=== PATIENT | female | born 1970 | race African-American/Black ===

== ENCOUNTER 2025-08-02 10:58 | Outpatient (AMB) | payer BC, SELFPAY ==
[2025-08-02 11:08] VITALS: BMI 37.9
--- NOTE | 2025-08-02 11:08 | A.PHYSOV_ITS ---
Vital Signs 08/02/25 11:08 Height 5 ft 9 in Weight 257 lb BMI 37.9 Intake Visit Reasons: back & leg pain Intake Note: Patient is a 54 year old female here today for low back and leg pain. Gyn Physician Required: No Allergies naproxen (From Naprosyn) Allergy (Unknown, Verified 08/02/25 11:10) Unknown HPI Comments Details: History of Present Illness The patient is a 54-year-old female presenting for evaluation of lower back pain. She has been experiencing lower back pain which sometimes radiates to her buttock and down the back of her leg to the front. Due to the pain, she felt her hips were out of alignment, causing her to walk with a lopsided gait, and this has contributed to weight gain. For the past two months, she has been receiving chiropractic treatments once a week, which has provided some improvement in her symptoms and ability to walk. She also uses a TENS unit and heat at home. She reports feeling significantly better recently, noting last week was the first time in three months she could walk at work without pain. She is feeling better since the initial exacerbation. She has a pain level today of 2/10. She was given exercises by her chiropractor but notes they seem to make her pain worse. The patient does not like to take pain medication, stating Tylenol does not seem to help, and she cannot take ibuprofen. Her history is notable for a lumbar MRI in 2022. Pain Description - Location: Lower back, localized to one area. - Radiation: Sometimes radiates into the buttock and down the back of the leg, extending to the front. - Associated Symptoms: Reports a sensation of her hips being out of alignment, which she feels affects her gait. - Severity: The pain was worse previously but has improved. - Exacerbating Factors: Pain is worsened by certain exercises, and she cannot sleep on her left side due to pain. - Relieving Factors: Chiropractic adjustments, using a TENS unit, and applying heat have provided some relief. - Interference with Function: Previously had difficulty walking, but this has improved; sleep is affected as she avoids sleeping on one side. Procedure: Left L3-4, L4-5, L5-S1 facet injection 09/28/2024 100% reduction of her back pain Results - Imaging: - Lumbar Spine MRI (2022): Revealed a disc herniation at L5-S1 that is encroaching on the left S1 nerve root. [facility] Surgical History H/O foot surgery H/O: hysterectomy Social History (Updated 08/02/25 @ 11:09 by Keri Cai MA) Alcohol intake: current Alcohol intake frequency: does not drink Patient Tobacco Use Status: Former Tobacco user Use of substances other than those prescribed or required for medical reasons: No Review of Systems Narrative Review of Systems - Musculoskeletal: Reports lower back pain that radiates to the buttock and leg. - Reports feeling like her hips are out of alignment, causing a lopsided gait. - Neurological: Denies numbness or tingling in her leg. - Constitutional: Reports weight gain. Physical Exam Exam Exam: Physical Exam - Back: No pain on palpation of the central lower back. - Pain is elicited with palpation over the left sacroiliac joint area. - No pain on palpation of the right sacroiliac joint area. - Lumbar extension elicits pain in the lower back. - Lumbar flexion produces slight localized pain. - Tenderness present over the left hip on palpation. - Neurological: Sensation is intact and equal in both legs. - No numbness is present. - Negative straight leg raise bilaterally. - Pain is elicited with resisted hip flexion. - Musculoskeletal: Full strength with foot dorsiflexion and plantarflexion. Vital Signs: BMI result Body Mass Index 37.9 Assessment & Plan Assessment & Plan (1) Lumbar radiculopathy: Code(s): M54.16 - Radiculopathy, lumbar region Category: Medical (2) Lumbar spondylosis: Code(s): M47.816 - Spondylosis without myelopathy or radiculopathy, lumbar region Category: Medical Plan Pain Management - Affect: Reports weight gain due to decreased activity from pain. - Analgesia: The patient does not take any medication for pain. - She has tried Tylenol but feels it is ineffective. - She uses a TENS unit and heat for pain control. - She is also receiving rn intensive care unit. - Adverse Effects: The patient cannot take ibuprofen. - Activities of Daily Living: The patient reports her walking has improved and she was recently able to walk at work without pain for the first time in three months. - She avoids sleeping on her left side because it is painful. - Aberrant Drug Related Behaviors: None noted; the patient reports an aversion to taking medications. Plan Patient was informed and verbally consented to the use of an ambient scribe for clinic note documentation during this visit. 1. Left Lumbar Radiculopathy The patient's symptoms are consistent with left S1 radiculopathy secondary to the L5-S1 disc herniation seen on her 2022 MRI. Treatment options were discussed, including conservative management, medication, and an epidural steroid injection targeting the left S1 nerve root. Patient will contact our office if she would like to pursue left S1 TFESI. Given that her symptoms are improving, the patient has elected to continue with her current conservative management and monitor her progress. She will continue with chiropractic visits, home use of a TENS unit, and heat. The patient was provided with a handout of gentle exercises for core and back strengthening and was advised to avoid any that exacerbate her pain. The patient was advised to call the office if her pain worsens, and it was explained that medications or an injection could be ordered via an addendum to today's note without needing another in-person visit. The process for ordering an injection, which requires insurance approval, was briefly explained. Discussion Notes I discussed with the patient that her symptoms are consistent with the findings on her MRI from 2022, which showed an L5-S1 disc herniation impinging on the left S1 nerve root. I explained that this can cause the type of radiating leg pain she has experienced. We reviewed several management options. These included continuing to monitor her symptoms, trying a prescription medication for pain, or proceeding with an epidural steroid injection to target the inflamed nerve. Given that she is starting to feel better with rn intensive care unit, I agreed that it is reasonable to wait and see if her symptoms continue to improve. I assured her that if her pain worsens, she can contact the office, and I can prescribe a medication or order an injection without requiring another scheduled appointment. I will document our plan and potential next steps today so we are prepared to act if needed. I provided her with a handout of exercises and advise d her to perform the gentle ones, avoiding any that cause increased pain. Patient Instructions - Continue with your current treatments that are helping, including chiropractic visits, using your TENS unit, and applying heat. - It is okay to wait and see if your pain continues to get better on its own. - You were given a sheet with exercises. - You can try the gentle exercises, but if any specific exercise makes your pain worse, you should stop doing that one. - If your pain gets worse or does not continue to improve, please call our office. - We can discuss other options like medication or an injection over the phone without you needing to come back in for an appointment. Coding Level of Care Code Est Pt Level 3 (72963) Diagnoses Lumbar radiculopathy M54.16 Lumbar spondylosis M47.816
--- OUTSIDE RECORDS SUMMARY | 2025-08-02 12:52 | XMS_ITS | Patient Health Record ---
Author Organization [facility] Address [address] [place] [address] Care Team Providers Care Senior Benefits Analyst Name Role Phone Leanne Sanabria MD Primary Care Provider Trevin Escamilla Unavailable [phone] Allergies Allergen (clinical drug ingredient) Drug/Non Drug Allergy documented on EMR Reaction Allergy Type Onset Date Status naproxen Naprosyn cough up blood Drug Allergy Ac tive Reason For Referral No Information Medications Medication SIG (Take, Route, Frequency, Duration) Notes Start Date End Date Status Multivitamins as directed Orally Active AFO-Hinged as directed Wear Adrianna ly; Duration: as needed 08/04/2017 Active Social History Tobacco Use: Social History Observation Description Date Details (start date - stop date) Former Smoker NA - NA Tobacco Use/Smoking Question Answer Notes Are you a: former smoker When did you stop smoking? 1984 Additional Findings: Tobacco Non-User Ex-cigaret te smoker Tobacco use other than smoking: Question Answer Notes Are you an other tobacco user? No Problems Problem Type SNOMED Code ICD Code Onset Dates Problem Status W/U Status Risk Notes Problem Localized, primary osteoarthritis of the ankle and/or foot (049884697) Primary osteoarthriti s, right ankle and foot (M19.071) Active confirmed Problem Tibialis tendinitis (40493891) Posterior tibial tendinitis, right leg (M76.821) Active confirmed Plan Of Treatment Pending Test Test Name Order Date X ray : Foot, right 2V 02/22/2017 X ray : Foot, left 3V 04/30/2013 X ray : Foot, right 3V 04/30/2013 Insurance Providers Payer Name Payer Address Payer Phone Subscriber Number Group Number Insured Name Patient Relationship to Insured Coverage Start Date Coverage End Date [facility] [id number] [place] [address] [id number] Susana Hamilton Self - patient is the insured Medical (General) History Medical History History ICD Code back, hip, knee pain chicken pox headaches/migraines Surgical History Surgery Date(Month/Year) bunionectomy right foot 1986 hysterectomy Hospitalization History Reason Date(Month/Year) MRI back 01/2013
--- OUTSIDE RECORDS SUMMARY | 2025-08-02 12:52 | XMS_ITS | Clinical Summary ---
Author Organization [facility] [address] [facility] [address] Address [address] [facility] [place] [address] Phone Care Team Providers Care Junior Net Developer Name Role Phone Candice Mcbride MD Primary Care Provider [phone] Allergies Active Allergy Reactions Criticality Noted Date Comments Naproxen Other 05/21/2013 GI BLEED Medications turmeric root extract 500 mg capsule Take by mouth. Active aspirin ([place]alore) 81 mg capsule Take 81 mg by mouth. 2 Active multivitamin (MULTIPLE VITAMINS ORAL) Take 1 tablet by mouth 1 (one) time each day. Active VITAMIN B COMPLEX ORAL Take 1 tablet by mouth 1 (one) time each day. Active UNABLE TO FIND Vitamins C E 500-400 MG-UNIT CAPS, Take 1 Cap by mouth daily. Active UNABLE TO FIND FISH [id number] AX-SAFFLOWER OR, Take 1 Cap by mouth daily. Active calcium carbonate (CALCIUM 600 ORAL) Take 1 tablet by mouth 1 (one) time each day. Active coenzyme Q-10 100 mg capsule Take 1 tablet by mouth 1 (one) time each day. Active glucosamine/chond ro martin A/C/Mn (GLUCOSAMINE-ANGELA DROITIN COMPLX ORAL) Take 1,500 mg by mouth daily. Active cholecalciferol (VITAMIN D-3) 50 mcg (2,000 unit) tablet Take 1 tablet (2,000 Units total) by mouth 1 (one) time each day. Active amLODIPine (NORVASC) 10 mg tabletIndications :Essential hypertension TAKE 1 TABLET BY MOUTH 1 TIME EACH DAY. 90 tablet 1 5 Active Active Problems Problem Noted Date Diagnosed Date Hyperlipidemia 12/27/2024 Allergy-induced asthma 06/01/2024 Vitamin D insufficiency 04/11/2020 Bilateral pulmonary embolism 10/11/2017 Atypical chest pain 09/29/2017 Essential hypertension 09/29/2017 Varicose veins of both lower extremities 018 Overview (06/01/2024): Vascular surgeon in [place], [place] Migraine 06/10/2014 Overview (06/01/2024): Dr. Saini Chronic low back pain 12/10/2013 Overview (06/01/2024): [facility] Severe obesity (BMI 35.0-39.9) with comorbidity 12/10/2013 Encounters Date Type Department Care Team Description 07/01/2025 4:00 PM EST Office Visit Adult Medicine [address] [phone] Malena Kahn MD Essential hypertension (Primary Dx); Severe obesity (BMI 35.0-39.9) with comorbidity (CMS/HCC V24, CMS/HCC V28) from Last 3 Months Immunizations Immunization Administration Dates Next Due Influenza Quadravalent, MDCK , 0.5ml, preservative free (Flucelvax) 6mo and older 04/30/2022 Influenza trivalent, 0.5mL, preservative free (Fluarix; FluLaval; Fluzone) ages 6mo and older (Afluria) 3 years and older 05/27/2023,05/09/2018,05/27/2017,06/10 Influenza trivalent, with pr eservative (Fluzone; Afluria) 6mo and older 06/26/2024,05/04/2016 Influenza, Unspecified 04/26/2022 Pfizer SARS-CoV-2 COVID-19, mRNA, LNP-S, preservative free 08/13/2021 Pneumococcal polysaccharide 23 valent (Pneumovax 23) 2yo and older 01/04/2022 Tdap Tetanus diptheria acell ular pertussis (Boostrix; Adacel) 7yo and older 10/27/2023,05/11/2013 Zoster recombinant (Shingrix ) 19yo and older 01/04/2022 Surgical History Surgery Date Site/Laterality Comments SECTION PROCEDURE: HISTORICAL DELIVERY BUNIONECTOMY PROCEDURE: [place] CORRJ HLX VLGS BNCTY SESMDC W/DOUBLE OSTEOTOMY; COMMENT: right foot HYSTERECTOMY PROCEDURE: HISTORICAL HYSTERECTOMY MOUTH SURGERY PROCEDURE: ORAL SURGERY PROCEDURE; COMMENT: tooth extraction OTHER SURGICAL HISTORY Right PROCEDURE: [place] ENDOVEN ABLTJ INCMPTNT VEIN MCHNCHEM 1ST VEIN; COMMENT: juan j 2018 FOOT SURGERY 2021 Right PROCEDURE: HISTORICAL FOOT SURGERY; COMMENT: with [facility] Medical History Medical History Date Comments LBP (low back pain) DX:LBP (low back pain) Lumbar disc herniation DX:Lumbar disc herniation Obesity DX:Obesity Vitamin D deficiency DX:Vitamin D deficiency Allergy-induced asthma DX:Allerg y-induced asthma Family History Medical History Relation Name Comments Diabetes Father Diabetes Mother Rheum arthritis Mother Heart attack Sister Other: pacemaker Sister Relation Name Status Comments Brother Alive HTN Daughter Alive Herpes Father Alive Dm, glaucoma,HT N Mother Alive DM,HTN Sister Alive 5 Sisters A&W Son Alive Social History Tobacco Use Types Packs/Day Years Used Date Smoking Tobacco: Former Cigarettes 1 Q uit: 08/15/1985 Smokeless Tobacco: Former Tobacco Cessation:Counseling Given: Not Answered Alcohol Use Standard Drinks/Week Comments No 0 (1 standard drink = 0.6 oz pur e alcohol) Housing Instability Answer Date Recorde d Are you worried that in the next 2 months you may not have stable housing? No 07/19/2024 Food Access & Nutrition Answer Date Rec orded Do you have access to a vari ety of food including fruits and vegetables? Yes 07/19/2024 Access to Healthcare Answer Date Record ed Within the last 3 months, ho w many times did you visit the emergency department for your medical care? 0 07/19/2024 Health Literacy Answer Date Recorded How often do you need to hav e someone help you when you read instructions, pamphlets, or other written material from your doctor or pharmacy? Never 07/19/2024 Caregiver: How often do you need to have someone help you when you read instructions, pamphlets, or other written material from your doctor or pharmacy? Not on file 07/19/2024 Financial Risk Answer Date Recorded How hard is it for you to pa y for the very basics like food, housing, medical care, and air conditioning / heating? Not very hard 07/19/2024 Transportation Answer Date Recorded Has the lack of transportati on kept you from meetings, work, or from getting things needed for daily living? No Has the lack of transportati on kept you from medical appointments or from getting medications? No 07/19/2024 Social Isolation Answer Date Recorded How often do you feel lonely or isolated from ose around you? Never 07/19/2024 Food Risk Answer Date Recorded Within the past 12 months we worried whether our food would run out before we got money to buy more. Never true 07/19/2024 Within the past 12 months th e food we bought just didn't last and we didn't have money to get more. Never true 07/19/2024 Dependent Care Answer Date Recorded Do you need help finding or paying for care for your loved ones. For example, childcare center director or elderly care for an older adult? No 07/19/2024 Education Answer Date Recorded Do you think completing more education or training, like finishing a GED, going to college, or learning a trade, would be helpful for you? No 07/19/2024 Employment and Income Answer Date Recor ded During the last four weeks, have you been actively looking for work? No 07/19/2024 Living Situation Answer Date Recorded What is your living situation? Unrecognized valu e 07/19/2024 Comments No Sex and Gender Information Value Date Recorded Sex Assigned at Not on file Legal Sex Female 10:11 AM EST Gender Identity Not on file Sexual Orientation Not on file Last Filed Vital Signs Vital Sign Reading Time Taken Comments Blood Pressure 130/85 07/01/2025 4:05 PM EST Pulse 69 07/01/2025 4:05 PM EST Temperature 35.9 C (96.6 F) 07/01/2025 4:05 PM EST Respiratory Rate 16 12/27/2024 4:54 PM EDT Oxygen Saturation - - Inhaled Oxygen Concentration - - Weight 117 kg (258 lb) 07/01/2025 4:05 PM EST Height 175.3 cm (5' 9 ) 07/01/2025 4:05 PM EST Body Mass Index 38.1 07/01/2025 4:05 PM EST Plan of Treatment Upcoming Encounters Date Type Department Care Team (Late st Contact Info) Description 10/14/2025 10:00 AM EST Office Visit Orthopedic Surgery - [place] [address] [phone] Gui Ruiz, DPM [address] [phone] 12/10/2025 4:00 PM EDT Office Visit Adult Medicine [facility] [address] [place] [address] Candice Mcbride MD [address] [place] [address] Health Maintenance Due Date Last Done Comments RSV Immunization Adult Patients (1 - Risk 50-74 years 1-dose series) 11/10/2019 COVID-19 Vaccine ( season) 2025 06/04/2024, 05/27/2023, 08/13/2021, Additional history exists Colorectal Cancer Screening: Colonoscopy 05/09/2025 05/09/2020 Social Influencers of Health Screening 07/19/2025 07/19/2024 Breast Cancer Screening 08/15/2025 Post poned from 1969 (Patient Refused) Cervical Cancer Screening: Pap Smear 08/15/2025 11/17/2018 Postponed from 11/17/2021 (Patient Refused) HIV Screening 08/15/2025 Postponed from 07/24/2022 (Patient Refused) Hepatitis B Vaccines (1 of 3 - 19+ 3-dose series) 08/15/2025 Postponed from 1988 (Patient Refused) Pneumococcal Vaccine: 50+ Years (2 of 2 - PCV) 08/15/2025 01/04/2022, 01/04/2022 Postponed from 01/04/2023 (Patient Refused) Hypertension/CHF/CAD Annual BMP Blood Test 12/21/2025 12/21/2024, 12/05/2024, 11/03/2023 Cholesterol Screening (Lipid Panel) 12/21/2029 12/21/2024, 10/27/2023 DTaP,Tdap,and Td Vaccines (3 - Td or Tdap) 10/26/2033 10/27/2023, 05/11/2013 Zoster Vaccines Completed 01/04/2022, 09/09/2021 Hepatitis C Screening Completed 04/30/2022 Depression Screening Completed 12/04/2024 Influenza Vaccine Completed 06/16/2025, , 06/04/2024, Additional history exists HIB Vaccines Aged Out No longer eligi ble based on patient's age to complete this topic HPV Vaccines Aged Out No longer eligi ble based on patient's age to complete this topic Hepatitis A Vaccines Aged Out No long er eligible based on patient's age to complete this topic IPV Vaccines Aged Out No longer eligi ble based on patient's age to complete this topic MMR Vaccines Aged Out No longer eligi ble based on patient's age to complete this topic Meningococcal ACWY Vaccine Aged Out N o longer eligible based on patient's age to complete this topic Meningococcal B Vaccine Aged Out No l onger eligible based on patient's age to complete this topic RSV Immunization Patients Under 20 months Aged Out No longer eligible based on patient's age to complete this topic Varicella Vaccines Aged Out No longer eligible based on patient's age to complete this topic Procedures Procedure Name Priority Date/Time Associated Diagnosis Comments COMPREHENSIVE METABOLIC PANEL Routine 12/21/2024 9:38 AM EDT Annual physical exam LIPID PANEL WITH REFLEX TO DIRECT LDL Routine 12/21/2024 9:38 AM EDT Annual physical exam HEPATITIS C SCREENING Routine 04/30/2022 COLONOSCOPY Routine 05/09/2020 PAP SMEAR Routine 11/17/2018 from Last 3 Months or Most Recently Relevant to Health Maintenance Results * (ABNORMAL) Lipid panel with reflex to direct LDL (12/21/2024 9:38 AM EDT) Cholesterol 237(H) 0 - 200 mg/dL LAB CHEMISTRY METHOD 12/21/2024 1:11 PM EDT [facility] Triglycerides 101 0 - 150 mg/dL LAB CHEMISTRY METHOD 12/21/2024 1:11 PM EDT [facility] HDL 59 >=40 mg/dL LAB CHEMISTRY METHOD 12/21/2024 1:11 PM T [facility] LDL Calculated 158(H) 0 - 100 mg/dL LAB CHEMISTRY METHOD 12/21/2024 1:11 PM EDT [facility] VLDL Cholesterol Parth 20.2 mg/dL LAB CHEMISTRY METHOD 12/21/2024 1:11 PM EDT [facility] Non HDL Chol. (LDL+VLDL) 178(H) <145 mg/dL LAB CHE[facility]STR[facility] Chol/HDL Ratio 4.0 0.0 - 4.4 LAB CHEMISTRY METHOD 12/21/2024 1:11 PM [facility] Blood Venous blood specimen / Unknown Venipuncture / Unknown 12/21/2024 9:38 AM EDT 12/21/2024 9:38 AM EDT us Candice Mcbride MD LAB BLOOD ORDERABLES Final Result [facility] [address] [place] [address], [place] [phone] * Comprehensive metabolic panel (12/21/2024 9:38 AM EDT) Sodium 138 133 - 145 mmol/L LAB CHEMISTRY METHOD 12/21/2024 1:11 PM T [facility] Potassium 4.1 3.5 - 5.5 mmol/L LAB CHEMISTRY METHOD 12/21/2024 1:11 PM [facility] Chloride 105 96 - 110 mmol/L LAB CHEMISTRY METHOD 12/21/2024 1:11 PM [facility] CO2 28 21 - 32 mmol/L LAB CHEMISTRY METHOD 12/21/2024 1:11 PM [facility] Anion Gap 5 3 - 11 LAB CHEMISTRY METHOD 12/21/2024 1:11 PM [facility] Glucose 97 70 - 100 mg/dL LAB CHEMISTRY METHOD 12/21/2024 1:11 PM [facility] BUN 14 5 - 25 mg/dL LAB CHEMISTRY METHOD 12/21/2024 1:11 PM [facility] Creatinine 0.95 0.50 - 1.10 mg/dL LAB CHEMISTRY METHOD 12/21/2024 1:11 PM [facility] eGFR 71 >=60 mL/min/1. 73m2 LAB CHEMISTRY METHOD 12/21/2024 1:11 PM [facility] Comment:Calculation based on the Chronic Kidney Disease Epidemiology Collaboration (CKD-EPI) equation refit without adjustment for race. BUN/Creatinine Ratio 14.7 LAB CHEMISTRY METHOD 12/21/2024 1:11 PM [facility] Calcium 9.8 8.5 - 10.5 mg/dL LAB CHEMISTRY METHOD 12/21/2024 1:11 PM [facility] AST (SGOT) 14 10 - 42 unit/L LAB CHEMISTRY METHOD 12/21/2024 1:11 PM [facility] ALT (SGPT) 30 10 - 60 unit/L LAB CHEMISTRY METHOD 12/21/2024 1:11 PM [facility] Alkaline Phosphatase 118 42 - 121 unit/L LAB CHEMISTRY METHOD 12/21/2024 1:11 PM [facility] Total Protein 6.8 6.0 - 8.0 g/dL LAB CHEMISTRY METHOD 12/21/2024 1:11 PM [facility] Albumin 3.9 3.2 - 5.0 g/dL LAB CHEMISTRY METHOD 12/21/2024 1:11 PM [facility] Total Bilirubin 0.4 0.0 - 1.4 mg/dL LAB CHEMISTRY METHOD 12/21/2024 1:11 PM EDT [facility] Blood Venous blood specimen / Unknown Venipuncture / Unknown 12/21/2024 9:38 AM EDT 12/21/2024 9:38 AM EDT Candice Mcbride MD LAB BLOOD ORDERABLES Final Result [facility] [address] [place] [address], [place] [phone] * Hepatitis C Screening (04/30/2022) Hepatitis C Screening abstracted Historical Provider HEALTH MAINTENANCE Final Result * Colonoscopy (05/09/2020) Colonoscopy abstracted, no interpretation Anatomical Region Laterality Modality Other Historical Provider HEALTH MAINTENANCE Final Result * Pap Smear (11/17/2018) Pap smear abstracted, no interpretation Historical Provider HEALTH MAINTENANCE Final Result from Last 3 Months or Most Recently Relevant to Health Maintenance Insurance Care Teams Junior Net Developer Relationship Specialty Start Date End Date Candice Mcbride MD [address] [address] [facility] - General 02/24/24
== END 2025-08-02 11:43 | disposition home or self-care (01) ==
LOC: HO.HPHYS 10:59
PROVIDERS: Visit Provider Physician Assistant
DX: M54.16 Radiculopathy, lumbar region (principal); M47.816 Spondylosis without myelopathy or radiculopathy, lumbar region
CPT/HCPCS: 99213